=== PATIENT | female | born 1935 | race Hispanic/Latino ===

== ENCOUNTER 2023-04-02 09:10 | Emergency (ER) | payer MEDICARE ==
[~2023-04-02] VITALS: Ht 149.9 cm; Wt 59.0 kg
[2023-04-02 10:26] LABS: APPEARANCE,URINE TURBID (CLEAR); BILIRUBIN,URINE NEGATIVE (NEGATIVE); COLOR,URINE YELLOW (YELLOW); GLUCOSE, URINE (UA) 250 mg/dL (NEGATIVE); KETONES,URINE NEGATIVE (NEGATIVE); LEUKOCYTE ESTERASE ,URINE LARGE Leu/uL (NEGATIVE); NITRATE,URINE NEGATIVE (NEGATIVE); OCCULT BLOOD,URINE LARGE (NEGATIVE); PROTEIN,URINE 30 mg/dL (NEGATIVE)
[2023-04-02 10:46] LABS: ADD UA MICROSCOPIC YES
[2023-04-02 10:56] LABS: BACTERIA,URINE Few /HPF (None Seen); RBC,URINE >100 /HPF (0-1); SQUAMOUS EPITHELIAL CELL,UR Rare /HPF (0-2); WBC,URINE TNTC /HPF (0-1)
[2023-04-02] MEDS ORDERED: CEFTRIAXONE 1G VIAL IM ONE (11:30)
[2023-04-02] MEDS ORDERED: MACR100 PO (12:20)
[2023-04-02] MEDS ORDERED: NITROFURANTOIN MONOHYD/M-CRYST 100 MG CAPSULE PO ONE (12:30)
[2023-04-02 13:02] VITALS: BP 123/59; PULSE 72; RESP 18; O2SAT 96
== END 2023-04-02 13:03 | disposition home or self-care (01) ==
LOC: EDH 09:10
DX: N39.0 Urinary tract infection, site not specified (principal); E11.9 Type 2 diabetes mellitus without complications; Z88.0 Allergy status to penicillin; Z90.49 Acquired absence of other specified parts of digestive tract; Z95.810 Presence of automatic (implantable) cardiac defibrillator
CPT/HCPCS: 81001; 87077; 87088; 87186

== ENCOUNTER 2024-02-28 10:08 | Emergency (ER) | payer MEDICARE ==
[~2024-02-28] VITALS: Ht 152.4 cm; Wt 63.5 kg
[~2024-02-28 10:08] MED LIST: MACR100 PO
[2024-02-28 10:52] LABS: CREATININE 0.9 mg/dL (0.5-1.0); POTASSIUM 4.2 mmol/L (3.5-5.1)
[2024-02-28 10:55] LABS: BASOPHILS # (AUTO) 0.04 K/uL (0.00-0.20); BASOPHILS % (AUTO) 0.8 % (0.0-5.0); EOSINOPHILS # (AUTO) 0.17 K/uL (0.00-0.70); EOSINOPHILS % (AUTO) 3.5 % (0.0-8.0); HEMATOCRIT 43.7 % (36-48); IMMATURE GRANULOCYTE ABSOLUTE 0.01 K/uL (0-1); MEAN CORPUSCULAR HEMOGLOBIN 31.6 pg (27.0-33.0); MEAN CORPUSCULAR HGB CONC 34.8 g/dL (32.0-36.0); MEAN CORPUSCULAR VOLUME 90.9 fL (79-99); MONOCYTES # (AUTO) 0.6 K/uL (0.1-1.0); MONOCYTES % (AUTO) 11.7 % (3.0-13.0); NEUTROPHILS # (AUTO) 2.1 K/uL (1.8-7.7); NEUTROPHILS % (AUTO) 43.8 % (40.0-77.0); PLATELET COUNT (AUTO) 128 K/uL (130-400); RED BLOOD CELL COUNT(AUTO) 4.81 MIL/uL (4.00-5.50); RED CELL DISTRIBUTION WIDTH 13.2 % (11.0-15.5); WHITE BLOOD COUNT (AUTO) 4.9 K/uL (4.8-10.8)
[2024-02-28 10:56] LABS: ALBUMIN 2.9 g/dL (3.5-5.0); BILIRUBIN,TOTAL 1.8 mg/dL (0.2-1.0); TOTAL PROTEIN, SERUM 6.7 g/dL (6.0-8.3)
[2024-02-28 10:59] LABS: ADD UA MICROSCOPIC YES; APPEARANCE,URINE CLOUDY (CLEAR); BILIRUBIN,URINE NEGATIVE (NEGATIVE); COLOR,URINE YELLOW (YELLOW); GLUCOSE, URINE (UA) >=1000 mg/dL (NEGATIVE); KETONES,URINE NEGATIVE (NEGATIVE); LEUKOCYTE ESTERASE ,URINE 500 Leu/uL (NEGATIVE); NITRATE,URINE NEGATIVE (NEGATIVE); OCCULT BLOOD,URINE MODERATE (NEGATIVE); PROTEIN,URINE 10 mg/dL (NEGATIVE); UROBILINOGEN,URINE 3 mg/dL (0.2-1.0)
[2024-02-28 11:32] LABS: BACTERIA,URINE RARE /HPF (None Seen); MUCUS,URINE RARE LPF (None Seen); RBC,URINE 51-100 /HPF (0-1); SQUAMOUS EPITHELIAL CELL,UR RARE /HPF (0-2); WBC CLUMP FEW /HPF (0-1); WBC,URINE 51-100 /HPF (0-1)
[2024-02-28] MEDS: LEVOFLOXACIN 750 MG/D5W 150ML BAG IV ONE (11:41)
[2024-02-28] MEDS ORDERED: LEVO-70 PO (14:05)
[2024-02-28 16:00] VITALS: BP 151/79; PULSE 69; RESP 20; O2SAT 99
== END 2024-02-28 17:38 | disposition home or self-care (01) ==
LOC: EDH 10:08
DX: N39.0 Urinary tract infection, site not specified (principal); F03.90 Unspecified dementia, unspecified severity, without behavioral disturbance, psychotic disturbance, mood disturbance, and anxiety; K74.60 Unspecified cirrhosis of liver; R53.81 Other malaise; E11.9 Type 2 diabetes mellitus without complications; I50.9 Heart failure, unspecified; Z79.899 Other long term (current) drug therapy; Z88.0 Allergy status to penicillin; Z90.49 Acquired absence of other specified parts of digestive tract; Z90.710 Acquired absence of both cervix and uterus; Z98.890 Other specified postprocedural states
CPT/HCPCS: 99285; 96365; 70450; 71045; 84484; 80053; 83880; 82140; 85025; 87086 ×2; 87186; 82948; 81001; 36415; 93005; J1956

== ENCOUNTER 2024-08-10 12:40 | Emergency (ER) | payer MEDICARE ==
[~2024-08-10] VITALS: Ht 152.4 cm; Wt 58.1 kg
[~2024-08-10 12:40] MED LIST changes: +LEVO-70 PO
[2024-08-10 13:17] VITALS: TEMP 98.7
[2024-08-10 13:48] VITALS: BP 149/62; PULSE 104; RESP 20; O2SAT 98
[2024-08-10] MEDS: LACTATED RINGERS 1000ML 1,000 ML IV ONE (14:07)
[2024-08-10 14:08] LABS: BASOPHILS # (AUTO) 0.13 K/uL (0.00-0.20); BASOPHILS % (AUTO) 1.8 % (0.0-5.0); EOSINOPHILS # (AUTO) 1.84 K/uL (0.00-0.70); EOSINOPHILS % (AUTO) 25.7 % (0.0-8.0); HEMATOCRIT 39.6 % (36-48); IMMATURE GRANULOCYTE ABSOLUTE 0.02 K/uL (0-1); LYMPHOCYTES # (AUTO) 2.2 K/uL (1.0-4.8); LYMPHOCYTES % (AUTO) 31.3 % (21.0-51.0); MEAN CORPUSCULAR HEMOGLOBIN 30.8 pg (27.0-33.0); MEAN CORPUSCULAR HGB CONC 34.3 g/dL (32.0-36.0); MEAN CORPUSCULAR VOLUME 89.6 fL (79-99); MONOCYTES # (AUTO) 0.7 K/uL (0.1-1.0); MONOCYTES % (AUTO) 9.1 % (3.0-13.0); NEUTROPHILS # (AUTO) 2.3 K/uL (1.8-7.7); NEUTROPHILS % (AUTO) 31.8 % (40.0-77.0); PLATELET COUNT (AUTO) 148 K/uL (130-400); RED BLOOD CELL COUNT(AUTO) 4.42 MIL/uL (4.00-5.50); RED CELL DISTRIBUTION WIDTH 13.8 % (11.0-15.5); WHITE BLOOD COUNT (AUTO) 7.2 K/uL (4.8-10.8)
[2024-08-10 14:21] LABS: POTASSIUM 4.3 mmol/L (3.5-5.1)
[2024-08-10 14:28] LABS: MAGNESIUM 1.8 mg/dL (1.80-2.40)
[2024-08-10 14:31] LABS: B-TYPE NATRIURETIC PEPTIDE 311 pg/mL (0-100)
--- NOTE | 2024-08-10 14:45 | HMCIMG ---
Exam Type: CT HEAD/BRAIN W/O CONTRAST Clinical Information: altered Comparison: None CT Dose Index (CTDI): 57.33 mGy Dose Length Product (DLP): 956.79 total mGy-cm Findings: The examination shows atrophy. There is low attenuation throughout the periventricular white matter locations, consistent with chronic small vessel ischemic changes. No acute intra- or extra-axial fluid collections are seen. There is no evidence of acute or chronic hemorrhage. There is no mass effect or shift of midline structures. There are no areas to suggest acute infarct. The skull windows show no significant abnormalities. IMPRESSION: 1. ATROPHY AND CHRONIC SMALL VESSEL ISCHEMIC CHANGES. This study was performed using dose reduction techniques to include automated exposure control and/or adjustment of the mA and/or kV according to patient size.
--- NOTE | 2024-08-10 15:11 | HMCIMG ---
Exam Type: CHEST 1VW Clinical Information: sepsis Comparison: None Findings: The lungs are clear of infiltrates. The heart is enlarged in size. The bony and soft tissue structures of the chest are unremarkable. Left cardiac pacemaker is noted with leads in place. Impression: Clear lungs.
[2024-08-10 15:17] LABS: APPEARANCE,URINE CLOUDY (CLEAR); BACTERIA,URINE MOD /HPF (None Seen); BILIRUBIN,URINE NEGATIVE (NEGATIVE); COLOR,URINE YELLOW (YELLOW); GLUCOSE, URINE (UA) >=1000 mg/dL (NEGATIVE); KETONES,URINE NEGATIVE (NEGATIVE); LEUKOCYTE ESTERASE ,URINE 500 Leu/uL (NEGATIVE); MUCUS,URINE RARE LPF (None Seen); NITRATE,URINE 2+ (NEGATIVE); PH,URINE 6.5 (5.0-8.0); PROTEIN,URINE NEGATIVE (NEGATIVE); SQUAMOUS EPITHELIAL CELL,UR RARE /HPF (0-2); UROBILINOGEN,URINE 0.2 mg/dL (0.2-1.0); WBC,URINE 26-50 /HPF (0-1); YEAST,URINE BUDDING RARE /HPF (None Seen)
[2024-08-10] MEDS ORDERED: cefTRIAXone 1G VIAL IVPB ONE (15:30)
[2024-08-10] MEDS ORDERED: CEFP200T14 PO (15:40)
--- NOTE | 2024-08-10 15:42 | ERN ---
General Chief Complaint: Altered Mental Status Stated Complaint: AMS, POSSIBLE UTI History of Present Illness Initial Comments 88-year-old female who presents for agitation possible hallucinations yesterday. According to family she has been having on and off episodes of confusion, combative, and possible hallucinations on and off for the last few months. She has been diagnosed with the UTIs multiple times. No fevers vomiting, headache vision changes or any other concerning symptoms she does also have a history of elevated ammonia levels and family he was worried that this may be the cause. She has been taking her lactulose regularly. 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 HEAD/FACE: No signs of trauma. EENT: No eye pain, no blurred vision, no tearing, no double vision, no ear pain, no ear discharge, no nose pain, no nasal congestion, no throat pain, no throat swelling, no mouth pain. RESPIRATORY: No cough, no orthopnea, no SOB, no stridor, no wheezing. CARDIOVASCULAR: No chest pain, no edema, no palpitations, no syncope. GASTROINTESTINAL/ABDOMINAL: No abdominal pain, no constipation, no diarrhea, no nausea, no vomiting. GENITOURINARY: No abnormal discharge, no dysuria, no frequent urination, no hematuria. No complaints of pain in the genitals. MUSCULOSKELETAL: No back pain, no gout, no joint pain, no joint swelling, no muscle pain, no muscle stiffness, no neck pain. INTEGUMENTARY: No change in color, no change in hair/nails, no dryness, no lesion, no lumps, no rash. NEUROLOGICAL/PSYCH: No anxiety, not depressed, no emotional problem, no headache, no numbness, no pre-existing deficit, no history of seizures, no tremors, no weakness. HEMATOLOGIC/LYMPHATIC: Not anemic, no history of blood clots, no apparent bleeding, no bruising, glands not swollen. All Systems Negative, Except as Noted. Physical Exam Physical Exam Dictation VITAL SIGNS: Reviewed. GENERAL APPEARANCE: Alert, oriented x3, no acute distress, HEAD AND FACE: Non-traumatic. EYES: PERRL, pink conjunctivas, eyelid no trauma, anterior chamber clear. EARS: Pinnas intact and no signs of trauma or erythema. Ear canals clear and no discharge. TMs no erythema. NOSE: No discharge, no bleeding. OROPHARYNX: Mouth normal, teeth no caries, tongue pink. Pharynx clear, no erythema. Tonsils no exudates, no abscesses noted. Mucous membrane moist. NECK: Supple, non-tender, no thyromegaly, no masses, no JVD, no bruits. BREAST: Deferred. CHEST: No tenderness, no crepitus, no paradoxical movement, no retractions. LUNGS: Clear, well-ventilated, symmetric, no rales, no wheezing, no rhonchi, no stridor, good breath sounds bilaterally. HEART: Regular rate, regular rhythm, no murmur, no gallops. VASCULAR: No peripheral edema. ABDOMEN: Soft, positive bowel sounds, nondistended, no guarding, nontender, no rebound, no masses no hepatomegaly, no splenomegaly, no Langston's sign, no hernias. RECTAL: Deferred. GENITAL: Deferred. NEUROLOGICAL: Normal speech, gross motor function intact, gross sensory function intact. MUSCULOSKELETAL: Neck nontender, full range of motion, back nontender, full range of motion. EXTREMITIES: Nontender, full range of motion. SKIN: Color pink, dry, no turgor, no rash, no lacerations, no abrasions, no contusions. LYMPHATICS: Deferred. Results Laboratory and Microbiology Lab and Micro Result Laboratory Tests Test 08/10/24 13:28 08/10/24 13:37 08/10/24 14:57 Whole Blood Glucose 325 MG/DL (70-110) H White Blood Count 7.2 K/uL (4.8-10.8) Red Blood Count 4.42 MIL/uL (4.00-5.50) Hemoglobin 13.6 g/dL (12.0-16.0) Hematocrit 39.6 % (36-48) Mean Corpuscular Volume 89.6 fL (79-99) Mean Corpuscular Hemoglobin 30.8 pg (27.0-33.0) Mean Corpuscular Hemoglobin Concent 34.3 g/dL (32.0-36.0) Red Cell Distribution Width 13.8 % (11.0-15.5) Platelet Count 148 K/uL (130-400) Mean Platelet Volume 9.7 fL (7.5-10.5) Immature Granulocyte % (Auto) 0.3 % (0-1) Neutrophils (%) (Auto) 31.8 % (40.0-77.0) L Lymphocytes (%) (Auto) 31.3 % (21.0-51.0) Monocytes (%) (Auto) 9.1 % (3.0-13.0) Eosinophils (%) (Auto) 25.7 % (0.0-8.0) H Basophils (%) (Auto) 1.8 % (0.0-5.0) Neutrophils # (Auto) 2.3 K/uL (1.8-7.7) Lymphocytes # (Auto) 2.2 K/uL (1.0-4.8) Monocytes # (Auto) 0.7 K/uL (0.1-1.0) Eosinophils # (Auto) 1.84 K/uL (0.00-0.70) H Basophils # (Auto) 0.13 K/uL (0.00-0.20) Absolute Immature Granulocyte (auto 0.02 K/uL (0-1) Nucleated Red Blood Cells 0.0 % (0.0-0.19) White Cell Morphology Comment See comments Sodium Level 136 mmol/L (136-145) Potassium Level 4.3 mmol/L (3.5-5.1) Chloride Level 99 mmol/L (101-111) L Carbon Dioxide Level 32 mmol/L (21-32) Blood Urea Nitrogen 16 mg/dL (7-18) Creatinine 1.0 mg/dL (0.5-1.0) Glomerular Filtration Rate Calc 55 mL/min (>90) Random Glucose 344 mg/dL (70-105) H Lactic Acid Level 2.2 mmol/L (0.8-2.5) Total Calcium 9.6 mg/dL (8.5-10.1) Magnesium Level 1.80 mg/dL (1.80-2.40) Ammonia 31 umol/L (11-32) Total Creatine Kinase 44 U/L (21-232) Troponin I High Sensitivity 27.9 ng/L (4-50) B-Type Natriuretic Peptide 311 pg/mL (0-100) H Procalcitonin 0.05 ng/mL (0.05-0.5) Serum Alcohol 4 mg/dL (0-10) Urine Color YELLOW (YELLOW) Urine Appearance CLOUDY (CLEAR) H Urine pH 6.5 (5.0-8.0) Urine Specific [place] 1.028 (1.001-1.031) Urine Protein NEGATIVE mg/dL (NEGATIVE) Urine Glucose (UA) >=1000 mg/dL (NEGATIVE) H Urine Ketones NEGATIVE mg/dL (NEGATIVE) Urine Occult Blood +- (TRACE) (NEGATIVE) H Urine Nitrate 2+ (NEGATIVE) H Urine Bilirubin NEGATIVE mg/dL (NEGATIVE) Urine Urobilinogen 0.2 mg/dL (0.2-1.0) Urine Leukocyte Esterase 500 Guerline/uL (NEGATIVE) H Urine RBC 11-25 /HPF (0-1) H Urine WBC 26-50 /HPF (0-1) H Urine Squamous Epithelial Cells RARE /HPF (0-2) Urine Bacteria MOD /HPF (None Seen) Urine Yeast RARE /HPF (None Seen) MDM CC: Possible UTI, according to daughter patient has been a little bit more combative than usual. Historian: Daughter provided much of the history Comorbidities: Advanced age, dyslipidemia, hypertension, liver cirrhosis, renal disease, likely dementia undiagnosed Differential diagnosis: UTI, infection, brain bleed hepatic encephalopathy, other. Vital signs: Stable remained stable in the ER On my examination the patient was answering questions appropriately. She has been confused which is baseline for patient. No obvious cranial nerve abnormalities. Labs ( independently interpreted by me ): No leukocytosis no anemia. BNP is normal. Glucose elevated at 344. Lactic acid stable. Magnesium normal. Ammonia normal. CK normal. Troponin normal. BNP mildly elevated at 311. Procalcitonin normal. EKG shows sinus rhythm rate of 61 normal axis good R-wave progression intervals are stable. Right bundle-branch block morphology. No STEMI. Independently interpreted by me. Urinalysis shows Infection, 2+ nitrites and leuk esterase. CT head without contrast ( independently interpreted by me ): Chronic changes, no acute brain bleed. CXR (independently interpreted by me ): No cardiomegaly or pleural effusions. Unremarkable. Cardiac pacer in place. Treatment in ER: 1 L normal saline, 1 g of Rocephin. Patient is nontoxic in appearance. He was at her baseline mentation. She does have a urinary tract infection, she was seat IV antibiotics. We will discharge with antibiotics. I did offer the patient admission for further treatment evaluation, a family prefers discharge at this time. Very safe for discharge. ED Course Orders Procedure Category Date Status Time Alcohol, Blood LAB 08/10/24 Complete 13:23 Ammonia LAB 08/10/24 Complete 13:23 Cardiac Panel LAB 08/10/24 Complete 13:23 Cbc With Differential LAB 08/10/24 Complete 13:23 Basic Metabolic Panel LAB 08/10/24 Complete 13:23 B-Type Natriuretic LAB 08/10/24 Complete Peptide 13:23 Magnesium LAB 08/10/24 Complete 13:23 Urinalysis LAB 08/10/24 Complete W/Microscopic 13:36 Lactic Acid LAB 08/10/24 Complete 13:36 Blood Cult KELLY 08/10/24 In Process 13:36 Procalcitonin LAB 08/10/24 Complete 13:36 Chest 1vw RAD 08/10/24 Resulted 13:36 Ct Head/Brain W/O CT 08/10/24 Resulted Contrast 13:36 12 Lead Ekg Tracing- EKG 08/10/24 Logged Technical 13:36 Lactated Ringers PHA 08/10/24 Complete 1000ml (Lactated 14:00 Culture Urine KELLY 08/10/24 Logged 15:21 Ceftriaxone 1g Vial PHA 08/10/24 In Process (Rocephine 1g Inj) 15:30 Current Medications Medications (Trade) Dose Ordered Sig/Devon Route PRN Reason Start Time Stop Time Status Last Admin Dose Admin Ceftriaxone Sodium (ROCEphine 1G INJ) 1 gm ONCE IVPB 08/10/24 15:30 08/10/24 21:30 Ceftriaxone Sodium (ROCEphine 1G INJ) 1 gm ONCE ONCE IVPB 08/10/24 15:30 08/10/24 15:31 UNV Lactated Ringer's 1,000 ml @ 0 mls/hr ONCE ONCE IV 08/10/24 14:00 08/10/24 14:01 DC 08/10/24 14:07 Vital Signs Date Time Temp Pulse Resp B/P (MAP) Pulse Ox O2 Delivery O2 Flow Rate FiO2 08/10/24 13:48 104 20 149/62 98 Room Air* 0 21 08/10/24 13:17 98.8 63 18 124/54 97 Room Air 0 DX & DISP Disposition: Discharge Departure Impression: Primary Impression: Acute UTI Additional Impression: Altered mental state Condition: Stable Scripts Cefpodoxime Proxetil (Cefpodoxime Proxetil) 200 Mg Tablet 200 MG PO BID for 10 Days, #20 TAB Prov: NELL ANDUJAR DO 08/10/24 Additional Instructions: You have some bacteria in your urine which may indicate a urinary tract infection. You received IV antibiotics here in the ER. I have also prescribed you antibiotics to take for the next 10 days. Your blood work (CBC, BMP, liver function tests, lactic acid, magnesium, ammonia level, CK, troponin, BNP, and procalcitonin) is unremarkable. The CT scan of your head shows chronic changes but is otherwise unremarkable. The chest x-ray does not show any abnormalities. The EKGs stable. As we discussed, consider talking to your doctor about dementia. Your symptoms may be related to dementia. Please return to the emergency department if you have any concerns. Referrals: SELF,REFERRAL (PCP) NELL ANDUJAR DO Aug 10, 2024 15:42
[2024-08-10] MEDS: cefTRIAXone 1G VIAL IVPB SCH (15:44)
--- NOTE | 2024-08-10 19:34 | EKG ---
[facility] Test Date: 2024-08-10 Test Time: 12:56:49 Pat Name: YESSI GARCIA Department: [facility] Room: Gender: F Logistics Support: [phone] : [id number] Requested By: NELL ANDUJAR Order Number: [id number] Reading MD: Krishan Donnelly Measurements Intervals [place] Rate: 61 P: 83 GA: 202 QRS: 49 QRSD: 119 T: 0 QT: 443 QTc: 447 Interpretive Statements Atrial-paced complexes Incomplete right bundle branch block ST depr, consider ischemia, anterolateral lds Compared to ECG 02/28/2024 10:52:39 Possible ischemia now present Ventricular-paced complex(es) or rhythm no longer present Electronically Signed On 08-11-2024 17:38:49 PRODUCT TECHNOLOGY SCIENTIST by Krishan Donnelly Please click the below link to view image of tracing.
== END 2024-08-10 16:28 | disposition home or self-care (01) ==
LOC: EDH 12:40
DX: R41.82 Altered mental status, unspecified (principal); N39.0 Urinary tract infection, site not specified; E78.00 Pure hypercholesterolemia, unspecified; I10 Essential (primary) hypertension; Z79.899 Other long term (current) drug therapy; Z88.0 Allergy status to penicillin
CPT/HCPCS: 99285; 96365; 70450; 96361; 71045; 82550; 83735; 84484; 80048; 83880; 82140; 85025; 87040 ×2; 87086 ×2; 87186; 82948; 83605; 81001; 36415; 93005; 84145; J7120; J0696